=== PATIENT | male | born 1970 | race Caucasian/White ===

== ENCOUNTER 2016-10-16 17:32 | Emergency (ER) | payer OTHER | END 2016-10-16 18:38 | disposition home or self-care (01) | LOC: ER1 17:32 | DX: L02.612 Cutaneous abscess of left foot (principal); F17.210 Nicotine dependence, cigarettes, uncomplicated; Z88.5 Allergy status to narcotic agent | CPT/HCPCS: 10061; 87070; 87077; 87186; 87205; 99282 ==